=== PATIENT | female | born 1950 | race Caucasian/White ===

== ENCOUNTER 2022-08-16 22:02 | Emergency (ER) | payer MEDICARE, BC, SELFPAY ==
[2022-08-16] VITALS (7 sets, daily range): BP systolic 128–139; BP diastolic 75–79; PULSE 78–101; RESP 18; TEMP 36.7; O2SAT 92–99; BMI 21.8
--- NOTE | 2022-08-16 22:26 | ED.GENADULT ---
HPI - General Adult General Time Seen by Provider: 22:27 Date Seen: 08/16/22 Chief complaint: Cough Stated complaint: Chest Pain,Cough Time Seen by Provider: 08/16/22 22:11 Source: patient Mode of arrival: ambulatory Limitations: no limitations History of Present Illness HPI narrative: 72-year-old female with history of prior acute CVA presents with a cough. This is been going on for about 6 days. Initially was productive but now is more drive. She denies shortness of breath orthopnea. Tonight when she was coughing she sat up in bed and had some pain in the left side of her chest which prompted her to come to the emergency department. The pain occurs with movement including trying to sit up and a little bit with her cough. She denies abdominal pain, nausea, vomiting, lower extremity swelling. No rest pain. Related Data Home Medications Medication Instructions Recorded Confirmed aspirin 81 mg tablet,delayed 81 mg PO DAILY 08/16/22 08/16/22 release (Adult Aspirin Regimen) atorvastatin 40 mg tablet 40 mg PO HS 08/16/22 08/16/22 Allergies Allergy/AdvReac Type Severity Reaction Status Date / Time No Known Drug Allergies Allergy Verified 08/16/22 22:23 Review of Systems Status of ROS: Reports: 10 or more systems reviewed and unremarkable except as noted in History and below Exam Narrative: Exam Narrative: General: Well-developed and well-nourished, no acute distress Head: Atraumatic and normocephalic Eyes: Pupils are equal reactive, extraocular motions intact, conjunctiva clear ENT: External nose and ears are normal, posterior pharynx without erythema or exudate Neck: No midline cervical tenderness, full spontaneous range of motion the neck, trachea midline, no adenopathy Heart: Regular rate and rhythm no murmurs or thrills Lungs: Clear to auscultation bilaterally without wheezes or crackles, persistent nonproductive cough Abdomen: Soft, nontender, nondistended with active bowel sounds Musculoskeletal: No tenderness, deformity, trace bilateral lower extremity edema Neurologic: Awake, alert, and oriented x3, no gross focal neurologic deficits, cranial nerves intact as tested Psych: Mood and affect are appropriate Skin: No rashes Const: Vital Signs, click to edit/add: Vital Signs - 24 hr 08/16/22 22:21 Temperature 98.0 F Pulse Rate [Right Pulse Oximeter] 78 Respiratory Rate 18 Blood Pressure [Ri ght Upper Arm] 128/76 Pulse Oximetry 99 Oxygen Delivery Me thod Room Air Course Course Hospital Course: Patient seen and examined, prior records reviewed. Patient presents with a cough for about a week. Differential diagnosis includes but not limited to pneumonia, heart failure, viral illness, bronchitis, pulmonary embolism. Chest x-ray is ordered to evaluate for infiltrate or effusion. EKG done from triage is reassuring. Labs ordered. If these are reassuring, patient be discharged. She does have some left-sided chest pain with movement and this likely is musculoskeletal, not reproducible, low likelihood of acute coronary syndrome based on description of chest pain. Reevaluation(s) Reevaluation #1: Labs demonstrate slightly elevated white blood cell count, chest x-ray negative for acute infiltrate. No evidence for pulmonary edema or heart failure, chest x-ray normal and BNP in normal range. Troponin is negative and EKG is reassuring. Symptoms are most likely related to post infectious cough and musculoskeletal pain. Patient will be given Decadron in the emergency department and discharged with continued outpatient follow-up. Time: 23:52 Vital Signs Vital signs: Initial Vital Signs Temperature 98.0 F 08/16/22 22:21 Temperature Source Temporal Artery Scan 08/16/22 22:21 Pulse Rate 78 08/16/22 22:21 Respiratory Rate 18 08/16/22 22:21 Blood Pressure 128/76 08/16/22 22:21 Blood Pressure Mean 93 08/16/22 22:21 Blood Pressure Position Sitting 08/16/22 22:21 Pulse Oximetry 99 08/16/22 22:21 Oxygen Delivery Method 08/16/22 22:21 Vital Signs Temperature 98.0 F 08/16/22 22:21 Pulse Rate 78 08/16/22 22:21 Respiratory Rate 18 08/16/22 22:21 Blood Pressure 128/76 08/16/22 22:21 Pulse Oximetry 99 08/16/22 22:21 Oxygen Delivery Method 08/16/22 22:21 Temperature 98.0 F 08/16/22 22:21 Pulse Rate 78 08/16/22 22:21 Respiratory Rate 18 08/16/22 22:21 Blood Pressure 128/76 08/16/22 22:21 Pulse Oximetry 99 08/16/22 22:21 Oxygen Delivery Method 08/16/22 22:21 Medical Decision Making Medical Records Medical records reviewed: Yes I reviewed the patient's medical records Lab Data Lab results reviewed: Yes I reviewed the patient's lab results Labs: Lab Results 08/16/22 08/16/22 08/16/22 Range/Units 22:50 22:55 22:55 WBC 11.70 H (4.50-11.00) K/uL RBC 4.30 (4.00-5.20) m/uL Hgb 12.6 (12.0-16.0) gm/dL Hct 38.9 (33.0-51.0) % MCV 91 (80-100) fL MCH 29 (26-34) pg MCHC 32 (32-36) gm/dL RDW Coeff of Vera 13.3 (11.5-15.5) % Plt Count 344 (140-440) K/uL Neut % (Auto) 68.2 (42.0-72.0) % Lymph % (Auto) 18.7 L (20-44) % [place] % (Auto) 10.3 (0.0-11.0) % Eos % (Auto) 1.5 (0.0-7.0) % Baso % (Auto) 0.3 (0.0-3.0) % Neut # (Auto) 8.00 H (1.7-7.0) K/uL Lymph # (Auto) 2.20 (0.90-2.90) K/uL [place] # (Auto) 1.20 H (0.00-0.90) K/UL Eos # (Auto) 0.20 (0.00-0.50) K/uL Baso # (Auto) 0.00 (0.00-0.30) K/uL Abs Immat Gran (auto) 0.10 (0.00-0.30) K/uL Imm/Tot Granulo (auto) 1.0 % NT-Pro-B Natriuret Pep 86 (0-125) PG/mL SARS-CoV-2 (PCR) (Negative) Influenza Type A (PCR) (Negative) Influenza Type B (PCR) (Negative) POC Troponin I 0.00 L (0.01-0.04) ng/ml 08/16/22 Range/Units 22:55 WBC (4.50-11.00) K/uL RBC (4.00-5.20) m/uL Hgb (12.0-16.0) gm/dL Hct (33.0-51.0) % MCV (80-100) fL MCH (26-34) pg MCHC (32-36) gm/dL RDW Coeff of Vera (11.5-15.5) % Plt Count (140-440) K/uL Neut % (Auto) (42.0-72.0) % Lymph % (Auto) (20-44) % [place] % (Auto) (0.0-11.0) % Eos % (Auto) (0.0-7.0) % Baso % (Auto) (0.0-3.0) % Neut # (Auto) (1.7-7.0) K/uL Lymph # (Auto) (0.90-2.90) K/uL [place] # (Auto) (0.00-0.90) K/UL Eos # (Auto) (0.00-0.50) K/uL Baso # (Auto) (0.00-0.30) K/uL Abs Immat Gran (auto) (0.00-0.30) K/uL Imm/Tot Granulo (auto) % NT-Pro-B Natriuret Pep (0-125) PG/mL SARS-CoV-2 (PCR) Negative SARS-CoV-2 (Negative) Influenza Type A (PCR) Negative PCR FLU A (Negative) Influenza Type B (PCR) Negative PCR FLU B (Negative) POC Troponin I (0.01-0.04) ng/ml ECG Data Attestation: I personally reviewed and interpreted this ECG as follows: Prior ECG tracings: not available for review Interpretation: Performed at 10:24 p.m. demonstrates normal sinus rhythm rate 93, no acute ST elevations or depressions, normal intervals, normal axis, QTC 417, CA 170. No prior for comparison. Discharge Plan Discharge Clinical Impression: Cough, Chest pain Patient Disposition: Home, Self-Care Condition: Stable Instructions: Acute Cough (ED), Chest Wall Pain (ED) Additional Instructions: [id number] cough medications as desired. Follow-up with your primary care doctor next week if not significantly better. You can take Tylenol or ibuprofen for your chest pain. Activity Level: No Restrictions Discharge Diet: Regular Prescriptions: No Action atorvastatin 40 mg tablet 40 mg PO HS aspirin [Adult Aspirin Regimen] 81 mg tablet,delayed release (DR/EC) 81 mg PO DAILY Follow Up/Referrals: Rc Cam MD [Primary Care Provider] - Stand Alone Forms: [facility] Info Instructions
--- NOTE | 2022-08-16 22:34 | CRLHL7_ITS ---
For Patients: As a result of the Cures Act, medical imaging exams and procedure reports are released immediately into your electronic medical record. You may view this report before your referring provider. If you have questions, please contact your health care provider. INDICATION: Cough. COMPARISON: None. FINDINGS/IMPRESSION: Portable AP chest radiograph. Lungs are clear aside from an area of parenchymal scarring and volume loss in the apical region of the right upper lobe and minimal scarring at the left lung apex. No pleural effusions. Normal heart size. Implanted subcutaneous cardiac cath technician projected over the left ventricle. Unremarkable bony structures. Dictated by Josh Garza MD @ 08/16/2022 11:06:27 PM Dictated by: Josh Garza MD @ 08/16/2022 23:07:31 (Electronically Signed)
[2022-08-16 23:15] LABS: Basophils Percent Auto 0.3 % (0.0-3.0); Eosinophils Percent Auto 1.5 % (0.0-7.0); Hematocrit 38.9 % (33.0-51.0); Hemoglobin* 12.6 gm/dL (12.0-16.0); Lymphocytes Percent Auto 18.7 % (20-44); Mean Corpuscular HGB Conc 32 gm/dL (32-36); Mean Corpuscular Hemoglobin 29 pg (26-34); Mean Corpuscular Volume 91 fL (80-100); Monocytes Percent Auto 10.3 % (0.0-11.0); Neutrophils Percent Auto 68.2 % (42.0-72.0); Platelet Count* 344 K/uL (140-440); RDW Coefficient of Variation % 13.3 % (11.5-15.5)
[2022-08-16 23:16] LABS: Slide Review Reflex No
[2022-08-16 23:28] LABS: NT Pro B Type NatriureticPept* 86 PG/mL (0-125)
[2022-08-16 23:43] LABS: PCR FLU A Negative PCR FLU A (Negative); PCR FLU B Negative PCR FLU B (Negative)
[2022-08-16 23:46] LABS: SARS PCR* Negative SARS-CoV-2 (Negative)
[2022-08-17] VITALS: PULSE 98; O2SAT 97
[2022-08-17 00:02] VITALS: BP 144/37; PULSE 97; O2SAT 92
[2022-08-17] MEDS: dexAMETHasone 4 MG/ML VIAL 6 MG IV (00:03)
[2022-08-17 00:25] VITALS: BP 144/37; PULSE 95; RESP 18; TEMP 36.7; O2SAT 92
== END 2022-08-17 00:18 | disposition home or self-care (01) ==
PROVIDERS: Emergency Provider Family Medicine; PCP Family Medicine
DX: R05.9 Cough, unspecified (principal); R07.9 Chest pain, unspecified
CPT/HCPCS: 36415; 71045; 83880; 85025; 87631; 93005; 94761; 96374; 99284; J1100